=== PATIENT | female | born 1955 | race Caucasian/White ===

== ENCOUNTER 2018-11-07 17:43 | Emergency (ER) | payer OTHER ==
[~2018-11-07] VITALS: Ht 152.4 cm; Wt 67.0 kg
[2018-11-07] MEDS ORDERED: INSU100C SQ-INSULIN (17:59)
[2018-11-07] MEDS ORDERED: ALBUTEROL/IPRATROPIUM 2.5MG/0.5MG, 3 ML NPPB ONE (18:00)
[2018-11-07] MEDS ORDERED: ALBU0.63 NEB (18:00)
--- NOTE | 2018-11-07 18:12 | NUR ---
PATIENT PRESENTS TO ED TODAY FOR INHALER REFILL, HX ASTHMA. SKIN WARM, PINK, DRY. DENIES CP AT THIS TIME. HX OF DM. SISTER AT BEDSIDE, AWAITING MD ORDERS, CALL LIGHT WITHIN REACH. RT PAGED FOR BREATHING TREATMENT.
[2018-11-07] MEDS ORDERED: ALBUTEROL/IPRATROPIUM 2.5MG/0.5MG, 3 ML ONE (18:22)
[2018-11-07] MEDS ORDERED: SODIUM CHLORIDE FLUSH 10ML SYR IVF ONE (18:30)
[2018-11-07] MEDS ORDERED: SODIUM CHLORIDE 0.9% 1,000ML IVBOLUS ONE (18:30)
--- NOTE | 2018-11-07 18:45 | NUR ---
PATIENT SITTING IN GURNEY, SPEAKING WITH SISTER AT BEDSIDE, PATIENT UNABLE TO URINATE AT THIS TIME, IV ESTABLISHED, IVF ADMINISTERED PER ORDER. LABS DRAWN, AWAITING RESULTS. CALL LIGHT WITHIN REACH
[2018-11-07 18:48] LABS: BASOPHILS % (AUTO) 1 % (0-1); EOSINOPHILS % (AUTO) 2 % (1-7); LYMPHOCYTES # (AUTO) 2.31 x10^3/uL (1-3.4); LYMPHOCYTES % (AUTO) 24 % (22-44); MD NO; MEAN CORPUSCULAR HEMOGLOBIN 30.9 pg (27.0-34.8); MEAN CORPUSCULAR HGB CONC 33.6 g/dL (32.4-35.8); MEAN CORPUSCULAR VOLUME 92.1 fL (80-100); MEAN PLATELET VOLUME 11.2 fL (7.4-10.4); MONOCYTES # (AUTO) 0.74 x10^3/uL (0.2-0.8); MONOCYTES % (AUTO) 8 % (2-9); NEUTROPHILS # (AUTO) 6.47 x10^3/uL (1.8-6.8); NEUTROPHILS % (AUTO) 66 % (42-75); PLATELET COUNT 167 x10^3/uL (130-400); RED BLOOD COUNT 4.56 x10^6/uL (3.82-5.3); RED CELL DISTRIBUTION WIDTH 13.7 % (9.6-15.2)
[2018-11-07 18:55] LABS: ALANINE AMINOTRANSFERASE 54 U/L (12-78); ALBUMIN 3.7 g/dL (3.4-5.0); ANION GAP 9 mmol/L (5-15); CALCIUM 9.1 mg/dL (8.5-10.1); CHLORIDE 103 mmol/L (98-107); CREATININE 0.84 mg/dL (0.55-1.02)
[2018-11-07 18:57] LABS: ALKALINE PHOSPHATASE 119 U/L (45-117); BILIRUBIN,TOTAL 0.4 mg/dL (0.2-1.0); TOTAL PROTEIN 7.5 g/dL (6.4-8.2)
--- NOTE | 2018-11-07 19:02 | NUR ---
PATIENT AMB WITH STEADY GAIT TO BATHROOM, SMALL AMOUNT OF URINE COLLECTED AND WALKED TO LAB.
[2018-11-07 19:03] LABS: ACETONE, SERUM Negative (Negative)
[2018-11-07] MEDS ORDERED: LORazepam 1MG TABLET ONE (19:10)
[2018-11-07 19:13] LABS: MICROSCOPIC AUTO
[2018-11-07 19:14] LABS: CULTURE INDICATED? YES
--- NOTE | 2018-11-07 19:17 | NUR ---
PATIENT ANXIOUS, PA AWARE, MEDICATION ADMINISTERED PER ORDER. FAMILY AT BEDSIDE, CALL LIGHT WITHIN REACH, LAB RESULTS BACK, AWAITING UA RESULTS. NO ADDITIONAL NEEDS AT THIS TIME A+OX4.
[2018-11-07] MEDS ORDERED: LORazepam 1MG TABLET PO ONE (19:30)
[2018-11-07] MEDS ORDERED: CEFTRIAXONE PMX 1GM/50ML 50 ML ONE (19:53)
--- NOTE | 2018-11-07 19:57 | NUR ---
IV ABX ADMINISTERED, BLOOD CULTURES NOT INDICATED AT THIS TIME PER PA, PATIENT FAMILY UPDATED ON POC. PATIENT SITTING IN GURNEY, COMFORTABLY, NADN. VS UPDATED IN CHART.
[2018-11-07 19:58] VITALS: BP 161/53
[2018-11-07] MEDS ORDERED: CEFTRIAXONE 1,000 MG IV ONE (20:00)
[2018-11-07] MEDS ORDERED: CEFTRIAXONE PMX 1GM/50ML 50 ML IV ONE (20:00)
--- NOTE | 2018-11-07 20:27 | NUR ---
FSBS, 227. PA aware. Patient/Caregiver given discharge instructions and they have confirmed that they understand the instructions. Patient ambulatory with steady gait to DC desk. Family to drive patient home for sfe DC.
== END 2018-11-07 20:32 | disposition home or self-care (01) ==
LOC: ED 18:14
DX: J45.31 Mild persistent asthma with (acute) exacerbation (principal); E11.65 Type 2 diabetes mellitus with hyperglycemia; N30.00 Acute cystitis without hematuria
CPT/HCPCS: 36415; 80053; 81001; 82010; 82962; 85025; 87077; 87086; 94640; 96361; 96365; 99283; J0696; J7030; J7512; J7620; 87186